=== PATIENT | female | born 1970 | race American Indian/Alaskan Native ===

== ENCOUNTER 2017-04-05 08:29 | Day surgery (SDC) | payer MEDICAID ==
[2017-03-05 11:13] VITALS: BMI 20.2
[2017-04-05] MEDS ORDERED: Lactated Ringer's 500 ML IV ONE (09:01)
[2017-04-05] MEDS ORDERED: Propofol 10 mg/ml Inj (20 ML) ONE (10:12)
[2017-04-05] MEDS ORDERED: Midazolam 2 MG/2 ML VIAL ONE (10:12)
[2017-04-05 11:11] VITALS: BP 140/59; PULSE 67; RESP 12; TEMP 97.4; O2SAT 100
== END 2017-04-05 12:02 | disposition home or self-care (01) ==
LOC: H.ENDO 08:29
PROVIDERS: ATTEND Internal Medicine Gastroenterology
DX: Z12.11 Encounter for screening for malignant neoplasm of colon (principal); J45.909 Unspecified asthma, uncomplicated; K64.8 Other hemorrhoids; K29.70 Gastritis, unspecified, without bleeding; R10.13 Epigastric pain
CPT/HCPCS: 43239; 45378; 88305; J2250; J2704; J7120